=== PATIENT | male | born 1975 | race Caucasian/White ===

== ENCOUNTER → 2018-12-08 | Outpatient (CLI) | payer BC, OTHER | LOC: BMCIMAGING 09:33 | PROVIDERS: ATTEND Family Medicine | DX: R10.31 Right lower quadrant pain (principal) ==

== ENCOUNTER → 2018-12-08 | Outpatient (CLI) | payer OTHER ==
[~2018-12-08] MED LIST: IOPAMIDOL (ISOVUE-300) 100 ML BTL ONE
== END ==
LOC: FIMAGING 11:31
PROVIDERS: ATTEND Family Medicine
DX: K76.0 Fatty (change of) liver, not elsewhere classified (principal); R16.0 Hepatomegaly, not elsewhere classified; M51.37 Other intervertebral disc degeneration, lumbosacral region
CPT/HCPCS: Q9967